=== PATIENT | female | born 1930 | race Caucasian/White ===

== ENCOUNTER 2018-10-02 06:17 | Day surgery (SDC) | payer MEDICARE, OTHER | END 2018-10-02 15:25 | disposition home or self-care (01) | LOC: GIL 06:17 | DX: K29.30 Chronic superficial gastritis without bleeding (principal); I10 Essential (primary) hypertension; E11.9 Type 2 diabetes mellitus without complications | CPT/HCPCS: 43239; 82962; 88305; 88312 ==